=== PATIENT | female | born 1955 | race Caucasian/White ===

== ENCOUNTER 2023-02-28 06:30 | Inpatient (IN) | payer MEDICARE, OTHER, SELFPAY ==
[2023-02-17 09:51] VITALS: BMI 33.0
[2023-02-28] VITALS (16 sets, daily range): BP systolic 99–142; BP diastolic 50–83; PULSE 75–94; RESP 14–18; TEMP 35.3–36.4; O2SAT 92–99; BMI 33.0
[2023-02-28] MEDS: LACTATED RINGERS 1,000 ML 100 ML IV ×2 (07:10→09:15)
[2023-02-28 07:43] LABS: COVID19 -Nasal RAPID Negative (Negative)
--- NOTE | 2023-02-28 07:45 | PM.PREOP ---
Pre-operative Note COVID-19 COVID-19 status: Negative Result date/Date tested (Pos, Neg/Pending): 02/28/23 Criteria for continued procedure: Expected advancement of disease process, Possibility delay results in more complex future surgery or treatment, Increased loss of function, Continuing or worsening of significant or severe pain, Deterioration of the patient's condition or overall health and Delay expected to result in less-positive ultimate med/surg outcome Interval Note History & Physical reviewed/Exam performed by Physician: Yes Changes to H&P: No
[2023-02-28] MEDS: CEFAZOLIN 2 GM/100 ML PREMIX 100 ML IV ×3 (08:30→20:09)
--- NOTE | 2023-02-28 08:38 | SUR.OPER ---
Prone on spine table, head in foam head support, padded chest and pelvic supports, gel pad at knees, lower legs supported by pillows; nipples, genitalia and toes free of pressure, arms secured on foam padded arm boards at <90 degrees abduction. Tape over blanket at thigh secured to table.
[2023-02-28] MEDS: BUPIVACAINE 0.25% (PF) 30 ML, EPINEPHrine 0.15 MG INJ (09:20)
--- NOTE | 2023-02-28 13:00 | DI.RAD.S_ITS ---
PROCEDURE: XR LUMBAR SPINE 2-3V INDICATIONS: L2-3, L3-4, L4-5 TLIF ROBOT TECHNIQUE: 2 intraoperative fluoroscopic views of the lumbar spine were acquired. COMPARISON: None. FINDINGS: Intraoperative fluoroscopic images of lumbar spine shows posterior fusion at L2-3, L3-4 and L4-5 levels with intervertebral spacer placement. IMPRESSION: Fluoro guidance was provided intraoperatively for posterior fusion of lumbar spine at L2-3 through L4-5 levels. Dictated by: Steve Chaparro M.D. on 02/28/2023 at 16:25 Approved by: Steve Chaparro M.D. on 02/28/2023 at 16:26
[2023-02-28] MEDS: BUPIVACAINE LIPOSOME 266 MG/20 ML VIAL INJ (13:27)
--- NOTE | 2023-02-28 13:45 | P.OP_ITS ---
Operative Date/Time/Diagnoses Date of procedure: 02/28/23 Time of procedure: 07:40 Pre-op diagnosis: 1. L2-3, L3-4, L4-5 spinal stenosis with neurogenic claudication. 2. Lumbar spondylolisthesis Post-op diagnosis: same Procedure & Clinicians Procedure: 1. L2-3, L3-4, L4-5 Postero-lateral and posterior interbody fusion 2. L2-3, L3-4, L4-5 interbody cage placement. 3. L2-3, L3-4, L4-5 decompressive laminectomy with bilateral facetecomies 4. L2-3, L3-4, L4-5 Posterior segmental instrumentation 5. Lanse of bone marrow from iliac crest 6. Utilization of microsurgical technique and operating microscope 7. Utilization of robotic assisted navigation Same procedure as scheduled: Yes Indications: Patient has been having chronic back pain and worsening lumbar radiculopathy. Patient failed multiple conservative management with worsening pain weakness and numbness in her lower extremity. Patient has been having difficulty performing activity of daily living. After discussing risks benefits of treatment options, patient elected proceed with surgery. Surgeon: Estefani Vazquez Alterations Supervisor: Lukas Valentine Click Yes if Unassisted: No Anesthesia Type: General Operative Notes Closure Type: primary Specimen(s): none sent Prosthetic devices, grafts, tissues, transplants, or devices: Globus CREO MIS screws, Rise cages Applied: catheter Estimated Blood Loss (mL): 100 Blood products transfused: none Procedure in detail: Patient was seen in the preoperative area. Risks and benefits of the surgery was discussed with the patient. Informed consent was obtained from the patient and placed in the chart. Surgical site was marked. Patient was taken to the operative room. General anesthesia was administered. Prophylactic antibiotic was given to the patient less than 30 min before the incision was made. Patient was placed into a prone position on the Jesus table. Patient's back was then prepped and draped in the sterile fashion. Time-out was performed at this time. After patient was prepped and draped, patient's PSIS was palpated and marked bilaterally. Small 1 cm incision was made over the PSIS for placement of the reference probes. Two trocar was placed into the PSIS 1 on each side. The reference probe was attached to the trocar of the reference apparatus. At this time the C-arm imaging was used to confirm AP and lateral of L2, L3, L4, L5 vertebrae and merged the C-arm imaging using the AetherPal robotic navigation system with the CT of the lumbar spine. After successful merging was completed and confirmed, skin marker was used to radha out the skin incision using the AetherPal robotic arm. Bilateral incision was made at this time. Pre templated trajectory was used and guided using the AetherPal robotic navigation system for bilateral L2 L3, L4, L5 pedicle screw placement. This was done by using the robotic arm to guide the high-speed bur to make a cortical entry point. Next a drill was placed also using the robotic arm and guided using the navigation system drilling partially through bilateral L2, L3, L4, L5 pedicles. Next L2, L3, L4, L5 pedicle screws it was pre templated and measured was placed onto the power dump truck driver off highway and inserted into the pedicles bilaterally. After all 6 screws were placed C-arm imaging was taken of both AP and lateral to confirm the placement. Excellent placement of the screws were confirmed and a matched precisely with the pre planned screw placement using the navigation system. MARs retractor was inserted using [employer] guidence. Globus MARS retractors was placed inside the incision and docked onto the L2, L3, L4 lamina. Using microsurgical technique and operating microscope, a L2, L3, L4 laminectomy and L2-3, L3-4, L4-5 facetectomy was performed using a Kerrison rongeur. Patient was found have severe lateral recess and neural foramen stenosis which was fully decompressed after the laminectomy facetectomy. More than 75% of the facets were removed during the process of decompression rendering L2-3, L3-4, L4-5 level grossly unstable and required a fusion procedure at the same time. The disc space at L2-3, L3-4, L4-5 was identified, and a total diskectomy was performed at L2-3, L3-4, L4-5 level. The endplates were decorticated using a rasp and shaver. The total diskectomy and decortication was performed at L2-3, L3-4, L4-5 level in order to to accomplish a L2-3, L3-4, L4-5 fusion. The local bone from the laminectomy and facetectomy was saved for local bone grafting. After the total diskectomy and decortication was completed, Trifecta bone graft material was combined with local bone that was harvested earlier. At this time, a separate skin is incision was made over the iliac crest. A Jamshidi needle was inserted into the iliac crest through a separate skin incision. 5 cc of bone marrow aspiration was obtained through the separate skin incision using a Jamshidi needle from the iliac crest. The bone marrow aspiration was combined with local bone and the Trifecta bone grafting material. The bone grafting material was placed into the L2-3, L3-4, L4-5 interbody space along with expandable cages. One cage each was inserted into the L2-3 L3-4 L4-5 interbody space along with bone graft material. The cage was expanded to its maximum height using the torque limiting screwdriver. The disc preparation as well as the cage insertion were also performed under navigation guidance. After the cage was placed, AP and lateral C-arm imaging was taken to confirm placement of the cage and excellent position was confirmed. Globus MARS retractor was inserted and docked onto the L2-3, L3-4 L4-5 process mold technician olateral gutter on the right side. Using the power drill, posterior-lateral decortication was performed at L2-3, L3-4 L4-5 level until bleeding cortical bone was identified. The remaining bone grafting material was placed into the L2-3, L3-4 L4-5 posterior lateral gutter he order to accomplish posterolateral fusion at the L2-3, L3-4, L4-5 level. At this time the tulips were attached to the L2, L3, L4, L5 pedicle screw shanks. After measuring the length of the rods, they were inserted into the tulips of the pedicle screws and locked in place using locking caps and torque limiting screwdriver bilaterally. Total 6 caps and 2 titanium rods was used in order to complete the posterior instrumentation construct. After all the hardware was placed, and confirmed with AP and lateral C-arm imag ing, the wound was then irrigated with sterile normal saline and packed with Ray-Kirsten gauze for 3 min to accomplish hemostasis. After the gauze was removed the deep fascia was closed with #1 Vicryl suture. The subcutaneous layer was closed with 2-0 Vicryl. The skin was closed with skin tenzin. Patient tolerated the procedure well. There were no complications. Neuro monitoring system was used to monitor patient's neurologic status throughout entire procedure. There was no disturbance of the neural monitoring signals throughout the case. Complications: none Post-operative Condition: stable Disposition: PACU Plan for aftercare: Admit to inpatient hospital
[2023-02-28] MEDS: HYDROMORPHONE 2 MG INJ IV ×2 (14:36→14:46)
[2023-02-28] MEDS: LACTATED RINGERS 1,000 ML 125 ML IV ×2 (15:57→21:44)
[2023-02-28] MEDS: OXYCODONE IR 10 MG TABLET PO ×3 (17:27→22:53)
[2023-02-28] MEDS: DOCUSATE 100 MG CAPSULE PO (20:09)
[2023-02-28] MEDS: SENNOSIDES 8.6 MG TABLET 17.2 MG PO (20:09)
[2023-02-28] MEDS: MAGNESIUM OXIDE 400 MG TABLET PO (20:09)
[2023-02-28] MEDS: MELATONIN 3 MG TABLET 9 MG PO (20:10)
[2023-02-28] MEDS: GABAPENTIN 600 MG TABLET 1200 MG PO (20:10)
[2023-02-28] MEDS: ONDANSETRON 4 MG/2 ML INJ IV (20:16)
[2023-02-28] MEDS: hydrOXYzine pamoate 25 MG CAPSULE PO (22:53)
[2023-03-01] VITALS (7 sets, daily range): BP systolic 97–131; BP diastolic 55–82; PULSE 93–105; RESP 16–18; TEMP 36.4–37.5; O2SAT 93–100
[2023-03-01] MEDS: ACETAMINOPHEN 325 MG TABLET 650 MG PO ×3 (02:45→20:01)
[2023-03-01] MEDS: OXYCODONE IR 10 MG TABLET PO ×3 (02:46→20:00)
[2023-03-01] MEDS: CEFAZOLIN 2 GM/100 ML PREMIX 100 ML IV (04:07)
[2023-03-01] MEDS: ONDANSETRON 4 MG/2 ML INJ IV ×2 (05:01→13:42)
[2023-03-01 05:09] LABS: Hematocrit 30.5 % (36-46); Hemoglobin 10.6 g/dL (12.0-16.0)
[2023-03-01] MEDS: HYDROMORPHONE 0.5 MG INJ IV (05:44)
[2023-03-01] MEDS: LACTATED RINGERS 1,000 ML 125 ML IV ×3 (05:45→22:17)
--- NOTE | 2023-03-01 07:59 | PM.PNPO.1 ---
Subjective Subjective Date Patient Seen: 03/01/23 Time Patient Seen: 07:59 Interval history: Patient is complaining of moderate to severe low back pain. She is also had 2 bouts of vomiting this morning. Her numbness and tingling in her right leg has resolved. She baseline uses gabapentin 1200 mg b.i.d.. She is not worked with physical therapy yet or occupational therapy and still has her catheter in place. Exam Vital Signs (past 8 hours): - 03/01/23 00:00 03/01/23 04:00 Temperature 97.6 F 98.5 F Pulse Rate 97 H 97 H Respiratory Rate 17 16 Blood Pressure 131/82 108/60 Pulse Oximetry 98 97 Oxygen Flow Rate 2 2 Oxygen Delivery Method Nasal Cannula Oxygen Flow Rate 2 Narrative Exam Narrative: Pleasant 67-year-old female, resting comfortably in bed, no acute distress. Lumbar dressings are clean, dry, intact. No surrounding erythema, induration, or carrillo pus. Bilateral lower extremity: Motor functions are grossly intact, sensation is grossly intact to light touch, calves are soft and nontender palpation. Objective Labs 03/01/23 04:20 Labs: Laboratory Results - last 24 hr 03/01/23 04:20 Hgb 10.6 L Hct 30.5 L PFSH Medical History Anesthesia complication Anxiety Breast cancer, right (2014) History of COVID-19 (2021) Sciatica Sleep apnea Spinal stenosis Surgical History History of lumpectomy of right breast (2014) Hx of tubal ligation Hx of vein stripping S/P left unicompartmental knee replacement S/P right unicompartmental knee replacement Social History household members: spouse Smoking Status: Former smoker alcohol intake: current Assessment & Plan Post-op Postoperative Procedures: Procedures Operation Date: 02/28/23 07:45 Actual Procedure Side Surgeon p L2-3, L3-4, L4-5 TLIF w. posterior instrumentation-Robot Estefani Vazquez MD Postoperative day: 1 Postoperative status: marginal pain control Postoperative status narrative: -marginal pain control but stable status post L2-3, L3-4, L4-5 TLIF with posterior instrumentation -postoperative nausea and vomiting Postoperative plan narrative: -mobilize with PT/OT. Weightbearing as tolerated with front wheel walker or cane. No bending, lifting, twisting x6 weeks -continue multimodal pain management, encourage p.o. pain medications -DC urinary catheter today if she is mobilizing well -DC home once cleared by PT/OT and pain is manageable; likely in 1-2 days Quality VTE Deep Vein Thrombosis/Pulmonary Embolism Present on Admission: No
[2023-03-01] MEDS: GABAPENTIN 600 MG TABLET 1200 MG PO ×2 (08:51→20:00)
[2023-03-01] MEDS: DOCUSATE 100 MG CAPSULE PO ×2 (08:51→20:00)
[2023-03-01] MEDS: SODIUM CHLORIDE 0.9% FLUSH 10 ML IV ×2 (08:53→20:12)
--- NOTE | 2023-03-01 11:10 | OT.IP.EVAL ---
Current Diagnoses Spondylolisthesis, lumbar region (02/28/23) Surgery Performed Operation Date: 02/28/23 07:45 Actual Procedures p L2-3, L3-4, L4-5 TLIF w. posterior instrumentation-Robot - Estefani Vazquez MD Past Medical History (Last Reviewed 03/01/23 @ 08:00 by Arely Hansen PA-C) Anesthesia complication Anxiety Breast cancer, right (2014) History of COVID-19 (2021) Sciatica Sleep apnea Spinal stenosis Surgical History (Last Reviewed 03/01/23 @ 08:00 by Arely Hansen PA-C) History of lumpectomy of right breast (2014) Hx of tubal ligation Hx of vein stripping S/P left unicompartmental knee replacement S/P right unicompartmental knee replacement Occupational Therapy Inpatient Evaluation/Re-Eval M1 PT/OT-IP Prior Functional Status Start: 03/01/23 08:03 Freq: NEEDED Status: Active Protocol: Document 03/01/23 11:03 SAK (Rec: 03/01/23 11:19 SAK [id number]) Medical Review Prior Functional Status Medical History Reviewed Yes Diet/Fluid Consistency Regular Communication no limitations Mobility and Gait painful but no device Activities of Daily Living and IADL's modified independent Prior Functional Level (Other details) modified indep Social History Household Members spouse Living Arrangements House Number of Floors (Floors) One Floor Number of Stairs To Enter/Railing? 3 stairs with railing Home Environment Tub/Shower Home Equipment Front Wheel Walker Employment Status Retired M1 PT/OT-IP Prior Functional Status Start: 03/01/23 13:40 Freq: NEEDED Status: Active Protocol: Document 03/01/23 10:20 [facility] (Rec: 03/01/23 14:14 [facility] [id number]) Medical Review Prior Functional Status Medical History Reviewed Yes Diet/Fluid Consistency Regular Communication no limitations Mobility and Gait painful but no device Activities of Daily Living and IADL's modified independent Prior Functional Level (Other details) modified indep Social History Household Members spouse Living Arrangements House Number of Floors (Floors) One Floor Number of Stairs To Enter/Railing? 3 stairs with railing Home Environment High Toilet,Walk in Shower Home Equipment Front Wheel Walker,Shower Seat with Backrest,Ditch Tender Employment Status Retired M2 OT-IP Current Condition Start: 03/01/23 13:40 Freq: Status: Active Protocol: Document 03/01/23 10:20 [facility] (Rec: 03/01/23 14:14 [facility] [id number]) Occupational Therapy Current Condition Current Condition Evaluation Date 03/01/23 Treatment Diagnosis S/p L2-3, L3-4, L4-5 TLIF Diagnosis Onset Date 02/28/23 Post Operative Precautions Lumbar Precautions Log Roll,No Twisting,Limit Bending,Lifting Restriction of 10 lbs,Gait Belt above Incisional Area M3 OT- IP Subjective and Pain Start: 03/01/23 13:40 Freq: Status: Active Protocol: Document 03/01/23 10:20 [facility] (Rec: 03/01/23 14:14 [facility] [id number]) OT- Subjective Occupational Therapy Visit Type Type Initial Evaluation Visit Start Time 10:20 Visit Stop Time 11:10 Total Visit Minutes 50 Occupational Therapy Visit Comments Patient Comments Pt agreed to get up to the sink for grooming needs. Patient/Caregiver Goals To go home. OT Pain Assessment Pain When Pain Assessed During Mobility Pain Present Pain Present Pain Reported Location Back Intensity 5 M4 OT- IP ADL's Start: 03/01/23 13:40 Freq: Status: Active Protocol: Document 03/01/23 10:20 [facility] (Rec: 03/01/23 14:14 [facility] [id number]) OT [id number] Comments OT Self-Feeding Comments not issues anticipated OT ADL-Grooming General Evaluation Grooming Ability Standby Assistance Areas Needing Assistance Retrieving/Set-up of Grooming Items Comments OT Grooming Comments Able to do while standing with FWW in front of the sink. OT ADL-Oral Care General Eval Oral Care Ability Standby Assistance Areas of Assistance Retrieving/Set-Up of Items Comments Oral Care Comments VC and education best to spit into a cup versus hinge at her hips in order to best follow her back precautions. OT ADL-Dressing General Eval Lower Body Dressing Ability Maximum Assistance Areas Needing Assistance Socks Comments OT Dressing Comments Pt states does not wear socks at home and that her will just assist her. Pt does has a plate sensitizer at home. OT ADL-Toileting General Evaluation Toileting Ability Total Assistance Comments OT Toileting Comments Cox in place. Pt able to practice to stand and reach back appropriately to be able to wipe- suggested use of wet wipes and pads if needed. OT ADL-Bathing Comments OT Bathing Comments not performed M5 OT- IP IADL's Start: 03/01/23 13:40 Freq: Status: Active Protocol: Document 03/01/23 10:20 [facility] (Rec: 03/01/23 14:14 [facility] [id number]) OT-Instrumental Activities of Daily Living Deficits IADL Deficits Identified Deficits Home Safety Awareness Awareness of Need for Assistance at Home Good Awareness Ability to Problem Solve Emergency Able to Problem Solve Situations Home Safety Comments Pt has a supportive to assist at home. M6 OT- IP Functional Cognition Start: 03/01/23 13:40 Freq: Status: Active Protocol: Document 03/01/23 10:20 [facility] (Rec: 03/01/23 14:14 [facility] [id number]) Cognitive Factors Limiting Selfcare Function Cognitive Ability Level of Alertness Alert Patient Orientation Name,Age,Birthday,Month,Date, Year,Day of Week,Place, Situation Attention Span Ability Capable of Focused Attention, Capable of Sustained Attention Ability to Follow Commands Able to Follow Multi-Step Commands Cognitive Comments Cognitive Assessment Comments Pt able to follow commands for back precautions after initial education. OT- Vision and Hearing OT- Hearing Assessment OT- Hearing Assessment WFL M7 OT- IP Mobility and Balance Start: 03/01/23 13:40 Freq: Status: Active Protocol: Document 03/01/23 10:20 [facility] (Rec: 03/01/23 14:14 [facility] [id number]) OT-Transfer Assessment Sit to and From Stand Sit to and from Stand Moderate Assistance Transfers Transfer Ability Contact Guard Assistance Technique Transfer Destination Chair Transfer Technique Stand Step Pivot Devices Transfer Assistive Devices Gait Belt,Front Wheeled Walker Comments Mobility Comments MODA to come to stand to FWW. Once on her feet CGA with FWW to get to the sink and back. Pt feeling tired as a little shaky and nauseous. BP sitting 103/55, 102/59 and after up at the sink 94/58 and then while seated and several minutes later 82/46, 80/46, and 79/46 when reclined and having to trendelenburg 97/58 nd 103/62- nursing notified of results and pt's status. Pt on RA 95%. OT- Balance Assessment Sitting Balance and Reactions Static Sitting Balance Ability Normal Dynamic Sitting Balance Ability Good Standing Balance and Reactions Static Standing Balance Ability Good Dynamic Standing Balance Ability Fair M8 OT- IP Objective Assessments Start: 03/01/23 13:40 Freq: Status: Active Protocol: Document 03/01/23 10:20 [facility] (Rec: 03/01/23 14:14 [facility] [id number]) OT-Muscle Tone Assessment Muscle Tone WNL Yes M9 OT- IP Assessment and Plan Start: 03/01/23 13:40 Freq: Status: Active Protocol: Document 03/01/23 10:20 [facility] (Rec: 03/01/23 14:14 [facility] [id number]) OT Summary Assessment and Plan Potential Rehabilitation Potential Good Analytic Complexity at Evaluation Low Summary OT Impairments Pain,Balance,Functional Mobility,Dressing,Toileting, Bathing,Toilet Transfers, Shower Transfers,Activity Tolerance Progress Towards Goals Slow Progress due to Pain,Slow Progress due to Medical Issues,Slow Progress due to Activity Tolerance Assessment Summary Pt low complexity and main barrier is having low BP after getting up. Able to go over back precautions and equipment needs for ADLs. Pt has a supportive to assist her when medically stable. Goals Grooming Goal Independent Dressing Goal Minimal Assistance Toileting Goal Independent Bathing Goal Minimal Assistance Toilet Transfer Goal Independent Shower Transfer Goal Standby Assistance Patient/Caregiver Education Goal Demonstrate Post-Op Precautions,Caregiver Independent Assisting Patient Days to Meet Goals 2 Frequency of Treatment Frequency Of Treatment Once a Day Treatment Plan OT Treatment Plan ADL Training,Functional Mobility,Patient/Family Education,Discharge Planning Other Treatment Recommendations and Next caregiver training/ shower if Treatment Focus pt willing Discharge Recommendations OT Discharge Recommendations Home with Assistance Transportation Needs at Discharge Private Vehicle
--- NOTE | 2023-03-01 11:20 | PT.IIE ---
Current Diagnoses Spondylolisthesis, lumbar region (02/28/23) Surgery Performed Operation Date: 02/28/23 07:45 Actual Procedures p L2-3, L3-4, L4-5 TLIF w. posterior instrumentation-Robot - Estefani Vazquez MD Surgical History (Last Reviewed 03/01/23 @ 08:00 by Arely Hansen PA-C) History of lumpectomy of right breast (2014) Hx of tubal ligation Hx of vein stripping S/P left unicompartmental knee replacement S/P right unicompartmental knee replacement Medical History (Last Reviewed 03/01/23 @ 08:00 by Arely Hansen PA-C) Anesthesia complication Anxiety Breast cancer, right (2014) History of COVID-19 (2021) Sciatica Sleep apnea Spinal stenosis Physical Therapy Inpatient Evaluation/Re-Eval M1 PT/OT-IP Prior Functional Status Start: 03/01/23 08:03 Freq: NEEDED Status: Active Protocol: Document 03/01/23 11:03 [facility] (Rec: 03/01/23 11:19 [facility] [id number]) Medical Review Prior Functional Status Medical History Reviewed Yes Diet/Fluid Consistency Regular Communication no limitations Mobility and Gait painful but no device Activities of Daily Living and IADL's modified independent Prior Functional Level (Other details) modified indep Social History Household Members spouse Living Arrangements House Number of Floors (Floors) One Floor Number of Stairs To Enter/Railing? 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 [id number]) Physical Therapy Current Condition Current Condition Evaluation Date 03/01/23 Treatment Diagnosis s/p lumbar fusion Onset Date 02/28/23 M3 PT-IP Subjective Start: 03/01/23 08:03 Freq: NEEDED Status: Active Protocol: Document 03/01/23 11:03 SAK (Rec: 03/01/23 11:19 [facility] [id number]) Subjective Physical Therapy Visit Type Type Initial Evaluation Visit Start Time 09:50 Visit Stop Time 10:15 Total Visit Minutes 25 Number of [employer]CHO[employer] NURSING DIRECTOR Visits 0 Physical Therapy Visit Comments Patient Comments Patient reports nauseous last night and this am early, better now Patient Goals discharge home with assistance of Therapy Pain Assessment Pain When Pain Assessed At Rest Pain Present Pain Present Pain Reported Location Back Intensity 5 Scale Used Numeric (0 - 10) Description Aching,Burning,Tender, Tightness Pain Behaviors Facial Grimacing,Wincing Pain Management Techniques Apply Cold M4 PT-IP Mobility and Gait Start: 03/01/23 08:03 Freq: NEEDED Status: Active Protocol: Document 03/01/23 11:03 SAK (Rec: 03/01/23 11:19 SAK [id number]) PT-Bed Mobility Assessment Rolling Type of Rolling Log Rolling,Roll to Right Level of Assist Minimal Assistance Supine to Sit Supine to Sit Minimal Assistance Scooting Scooting to Edge of Bed Minimal Assistance PT-Transfer Assessment Sit to and From Stand Sit to and from Stand Contact Guard Assistance Equipment Transfer Assistive Device Gait Belt,Front Wheeled Walker Transfers Transfer Destination Chair Transfer Technique walked Transfer Ability Level of Assist Contact Guard Assistance Gait Assessment Gait Gait Assistance Required: Contact Guard Assist Distance (Feet) 15 Assistive Devices Assistive Device Gait Belt,Front Wheeled Walker Gait Deviations General Gait Pattern Antalgic,Decreased Stride Length,Decreased Feet Clearance Factors Limiting Gait Function Factors Limiting Gait Function Decreased Strength,Pain Comments Gait Comments Slow, shuffling gait, no LOB. Cues to keep eyes open, breath PT-Balance Assessment Sitting Balance and Reactions Static Sitting Balance Ability Good Dynamic Sitting Balance Ability Good Standing Balance and Reactions Static Standing Balance Ability Fair Dynamic Standing Balance Ability Fair M5 PT-IP Objective Assessments Start: 03/01/23 08:03 Freq: NEEDED Status: Active Protocol: Document 03/01/23 11:03 PRIYA (Rec: 03/01/23 11:19 SAK [id number]) Orientation Orientation/Cognition Level of Alertness Alert Orientation Name,Place,Situation Language Function Ability No Deficits Noted Safety Awareness Understands Safety Issues Memory Description No Deficits Noted Gross Range of Motion Upper Extremity ROM Assessment Within Functional Limits Lower Extremity ROM Assessment Within Functional Limits Strength Upper Extremity Strength Assessment Within Functional Limits Lower Extremity Strength Assessment Within Functional Limits Coordination Assessment Gross Coordination Gross Coordination WNL Sensation Assessment Sensation Gross Sensation WNL M6 PT-IP Treatment Start: 03/01/23 08:03 Freq: NEEDED Status: Active Protocol: Document 03/01/23 11:03 PRIYA (Rec: 03/01/23 11:19 SAK [id number]) Physical Therapy Treatment Education Education Provided Precautions M7 PT-IP Assessment and Plan Start: 03/01/23 08:03 Freq: NEEDED Status: Active Protocol: Document 03/01/23 11:03 PRIYA (Rec: 03/01/23 11:19 PRIYA [id number]) PT Summary Assessment and Plan Potential Rehabilitation Potential Good Status of Condition at Evaluation Evolving Summary Impairments Pain,Bed Mobility,Transfers, Gait,Activity Tolerance Assessment Summary PT evaluation s/p lumbar surgery with fusion performed 02/18/23. Patient lives in [place] with and plans to return home at discharge. Patient needed min assist with bed mobility, CGA with tranfers and gait with cues for hand placement and safety, keeping eyes open, and breathing instead of holding breath. Anticipate she will be able to discharge home with assist of . Goals Bed Mobility Goal Independent Transfer Goal Independent Gait Goal Independent Gait Distance 100 Days to Meet Goals 4 Frequency of Treatment Frequency Of Treatment Twice a Day Treatment Plan Physical Therapy Treatment Plan Bed Mobility Training,Transfer Training,Gait Training, Therapeutic Exercise,Discharge Planning,Hot or Cold Pack Precautions Lumbar Precautions Log Roll Weight Bearing Status Weight Bearing Status Full Weight Bearing Recommendations To Nursing Amount of Assist Needed 1 Person Assist Discharge Recommendations PT Discharge Recommendations Home with Assistance, Outpatient PT Equipment Needed for Home Before FWW Discharge
[2023-03-01] MEDS: hydrOXYzine pamoate 25 MG CAPSULE PO (12:58)
--- NOTE | 2023-03-01 14:23 | CM.DANOTE ---
Discharge Planning/Care Management CM Discharge Assessment Start: 03/01/23 14:08 Freq: Status: Active Protocol: Document 03/01/23 14:08 KAM (Rec: 03/01/23 14:23 KAM [id number]) Discharge Planning Assessment Assigned Special Services Agent BRYN Aiken DPOA/Assigned Designee Name Santo Romano, spouse Contact Information [phone] Advance Directives? Yes Advance Directives on File No History Provided By Patient,Significant Other, Medical Record Prior Living Arrangements House Household Members spouse Type of transporation used prior to Drives own vehicle admit Independent with ADL's Yes Is patient alert and oriented? Yes Barriers to Discharge No Comment Patient is a 67 yo female, resident of [place], POD1 from [facility] by Dr Taylor Fenton [facility]/[place] Patient has planned for discharge home w/spouse to assist as needed and therapy has cleared patient for this plan. Discharge home is anticipated, close outpatient follow up JW Discharge Plan Home Transportation Arrangement spouse Referrals Initiated None needed
--- NOTE | 2023-03-01 15:25 | PT.IPTN ---
Current Diagnoses Spondylolisthesis, lumbar region (02/28/23) Surgery Performed Operation Date: 02/28/23 07:45 Actual Procedures p L2-3, L3-4, L4-5 TLIF w. posterior instrumentation-Robot - Estefani Vazquez MD Physical Therapy Treatment Note M2 PT-IP Current Condition Start: 03/01/23 08:03 Freq: NEEDED Status: Active Protocol: Document 03/01/23 11:03 SAK (Rec: 03/01/23 11:19 SAK [id number]) Physical Therapy Current Condition Current Condition Evaluation Date 03/01/23 Treatment Diagnosis s/p lumbar fusion Onset Date 02/28/23 M3 PT-IP Subjective Start: 03/01/23 08:03 Freq: NEEDED Status: Active Protocol: Document 03/01/23 16:22 TS (Rec: 03/01/23 16:31 TS [id number]) Subjective Physical Therapy Visit Type Type Treatment Note Visit Start Time 15:25 Visit Stop Time 15:45 Total Visit Minutes 20 Physical Therapy Visit Comments Patient Comments Patient found resting in bed, agreeable to PT. Patient Goals discharge home with assistance of Therapy Pain Assessment Pain When Pain Assessed At Rest Pain Present Pain Present Pain Reported M4 PT-IP Mobility and Gait Start: 03/01/23 08:03 Freq: NEEDED Status: Active Protocol: Document 03/01/23 16:22 TS (Rec: 03/01/23 16:31 TS [id number]) PT-Bed Mobility Assessment Rolling Type of Rolling Log Rolling,Roll to Right Level of Assist Standby Assistance Supine to Sit Supine to Sit Standby Assistance Sit to Supine Sit to Supine Standby Assistance Scooting Scooting to Edge of Bed Standby Assistance Scooting Up and Down in Bed Standby Assistance PT-Transfer Assessment Sit to and From Stand Sit to and from Stand Standby Assistance Equipment Transfer Assistive Device Gait Belt,Front Wheeled Walker Comments Mobility Comments Log Roll SBA, demonstrated good carryover from previous session. Supine to sit SBA, provided cues for pushing through elbow and LUE. Sit to stand x1 SBA, cues for upright posture and spinal precautions. Pt ambulated ~300 with emerging step thru gait SBA, no reports of dizziness, buckling or LOB. Sit to supine SBA, cues for maintaining spinal precautions and sequencing of logroll. Pt was left in bed with call light nearby, in room. Gait Assessment Gait Gait Assistance Required: Standby Assistance Distance (Feet) 300 Assistive Devices Assistive Device Gait Belt,Front Wheeled Walker Gait Deviations General Gait Pattern Antalgic,Decreased Stride Length,Decreased Feet Clearance Factors Limiting Gait Function Factors Limiting Gait Function Decreased Strength,Pain Comments Gait Comments See mobility comments. Stair Climbing Assessment Comments Stair Climbing Comments Will assess stairs in morning. Pt has two to enter house. PT-Balance Assessment Sitting Balance and Reactions Static Sitting Balance Ability Good Dynamic Sitting Balance Ability Good Standing Balance and Reactions Static Standing Balance Ability Fair Dynamic Standing Balance Ability Fair M5 PT-IP Objective Assessments Start: 03/01/23 08:03 Freq: NEEDED Status: Active Protocol: Document 03/01/23 11:03 SAK (Rec: 03/01/23 11:19 SAK [id number]) Orientation Orientation/Cognition Level of Alertness Alert Orientation Name,Place,Situation Language Function Ability No Deficits Noted Safety Awareness Understands Safety Issues Memory Description No Deficits Noted Gross Range of Motion Upper Extremity ROM Assessment Within Functional Limits Lower Extremity ROM Assessment Within Functional Limits Strength Upper Extremity Strength Assessment Within Functional Limits Lower Extremity Strength Assessment Within Functional Limits Coordination Assessment Gross Coordination Gross Coordination WNL Sensation Assessment Sensation Gross Sensation WNL M6 PT-IP Treatment Start: 03/01/23 08:03 Freq: NEEDED Status: Active Protocol: Document 03/01/23 16:22 TS (Rec: 03/01/23 16:31 TS [id number]) Physical Therapy Treatment Education Education Provided Precautions Other Treatments Other Treatment Performed Pt recalled 3/3 spinal precautions. M7 PT-IP Assessment and Plan Start: 03/01/23 08:03 Freq: NEEDED Status: Active Protocol: Document 03/01/23 16:22 TS (Rec: 03/01/23 16:31 TS [id number]) PT Summary Assessment and Plan Potential Rehabilitation Potential Good Status of Condition at Evaluation Evolving Summary Impairments Pain,Bed Mobility,Transfers, Gait,Activity Tolerance Assessment Summary Pt progressed logroll to SBA, deonstrated good carryover of sequencing. She increased her ambulation to ~300' in hallway SBA, no reports of dizziness, buckling or LOB. Pt recalled spinal precautions 3/3 and good safety awareness throughout session. Pt has 2 stairs to enter home, will trial in morning. PT is recommending home with assist from spouse. Goals Bed Mobility Goal Independent Transfer Goal Independent Gait Goal Independent Gait Distance 100 Days to Meet Goals 4 Frequency of Treatment Frequency Of Treatment Twice a Day Treatment Plan Physical Therapy Treatment Plan Bed Mobility Training,Transfer Training,Gait Training, Therapeutic Exercise,Discharge Planning,Hot or Cold Pack Precautions Lumbar Precautions Log Roll Weight Bearing Status Weight Bearing Status Full Weight Bearing Recommendations To Nursing Amount of Assist Needed 1 Person Assist Discharge Recommendations PT Discharge Recommendations Home with Assistance, Outpatient PT Equipment Needed for Home Before FWW Discharge
--- NOTE | 2023-03-01 15:38 | PC.NURSE ---
0800: drowsy, wakens to verbal stimuli. b/p 90/60's w/ HOB elevated, became shakey, nauseated and pale. 1100: tolerated OOB to chair. became pale, tremulous, cold to the touch on her arms and face, nauseated. b/p trending down, lowest was 79/46. placed into trendelenberg, slow to recover. 1300: assisted back to bed - it took about 30 min to get from trendelenberg to sitting up in chair w/ feet on the floor. patient symptomatic, same symptoms as above. glucose 128. encouraged patient to use IS and work thru the symptoms. she was able to push herself up out of w/c and amb 10 feet around bed w/ FWW and assisted to bed via log roll. Santo present for above transfer. PRN oxycodone, vistaril, tylenol given w/ good effect. she had a good nap. 1530: walked w/ PT, did so much better than earlier. pain & bp improved. anticipates d/c tomorrow. 1800: updated Arely Hansen on above events, no new orders received. noticed code status is not updated in computer, passed that message along to Arely. report to JEANMARIE Moser.
[2023-03-01] MEDS: MELATONIN 3 MG TABLET 9 MG PO (19:59)
[2023-03-01] MEDS: SENNOSIDES 8.6 MG TABLET 17.2 MG PO (20:00)
[2023-03-01] MEDS: MAGNESIUM OXIDE 400 MG TABLET PO (20:01)
[2023-03-02] VITALS (9 sets, daily range): BP systolic 101–130; BP diastolic 48–88; PULSE 81–115; RESP 16–21; TEMP 36.6–38; O2SAT 94–100
[2023-03-02] MEDS: OXYCODONE IR 10 MG TABLET PO ×5 (00:09→18:46)
[2023-03-02] MEDS: ACETAMINOPHEN 325 MG TABLET 650 MG PO ×3 (04:21→21:11)
--- NOTE | 2023-03-02 08:29 | P.PN_ITS ---
Subjective Subjective Date Patient Seen: 03/02/23 Time Patient Seen: 08:00 Interval history: Patient is awake sitting up in bed this morning. She states her pain is well controlled with medication and her back doesn't hurt at rest. She notes that she worked with physical therapy yesterday and it went well. She plans to work with them again today and practice stairs because she has 2 stairs to get into her home. She complains of fever, chills, and headache overnight. Exam Vital Signs (past 8 hours): - 03/02/23 04:21 03/02/23 04:00 03/02/23 08:14 Temperature 100.4 F H 100.4 F H 98.1 F Pulse Rate 115 H 93 H Respiratory Rate 21 19 Blood Pressure 111/56 L 130/88 Pulse Oximetry 94 95 Oxygen Flow Rate 4 0 Oxygen Delivery Method Nasal Cannula Oxygen Flow Rate 0 Narrative Exam Narrative: Pleasant 67-year-old female. Awake, alert, and oriented. Intraoperative lumbar spine dressing clean, dry, and intact. Strength and sensation intact to bilateral lower extremities. Bilateral calves soft, compressible, nontender with no palpable cords or masses. Pulse rate 91. Blood pressure within acceptable range. Objective Labs 03/01/23 04:20 PFSH Medical History Anesthesia complication Anxiety Breast cancer, right (2014) History of COVID-19 (2021) Sciatica Sleep apnea Spinal stenosis Surgical History History of lumpectomy of right breast (2014) Hx of tubal ligation Hx of vein stripping S/P left unicompartmental knee replacement S/P right unicompartmental knee replacement Social History household members: spouse Smoking Status: Former smoker alcohol intake: current Assessment & Plan Post-op Postoperative Procedures: Procedures Operation Date: 02/28/23 07:45 Actual Procedure Side Surgeon p L2-3, L3-4, L4-5 TLIF w. posterior instrumentation-Robot Estefani Vazquez MD Postoperative day: 2 Postoperative status: doing well Postoperative status narrative: Patient is progressing as expected after three- level TLIF Postoperative plan: routine post-op care Postoperative plan narrative: Plan to assess vitals throughout the day. Work with physical therapy. Continue multimodal pain management. We will consider discharge as appropriate. Quality VTE Deep Vein Thrombosis/Pulmonary Embolism Present on Admission: No
[2023-03-02] MEDS: MAGNESIUM HYDROXIDE 30 ML UDC PO (08:43)
[2023-03-02] MEDS: DOCUSATE 100 MG CAPSULE PO ×2 (08:43→21:11)
[2023-03-02] MEDS: GABAPENTIN 600 MG TABLET 1200 MG PO ×2 (08:43→21:11)
[2023-03-02] MEDS: polyethylene glycoL 3350 17 GM POWD.PACK PO (08:43)
[2023-03-02] MEDS: SODIUM CHLORIDE 0.9% FLUSH 10 ML IV ×2 (08:47→21:11)
--- NOTE | 2023-03-02 11:13 | PT.IPTN ---
Current Diagnoses Sleep apnea, unspecified (02/28/23) Spondylolisthesis, lumbar region (02/28/23) Surgery Performed Operation Date: 02/28/23 07:45 Actual Procedures p L2-3, L3-4, L4-5 TLIF w. posterior instrumentation-Robot - Estefani Vazquez MD Physical Therapy Treatment Note M2 PT-IP Current Condition Start: 03/01/23 08:03 Freq: NEEDED Status: Active Protocol: Document 03/01/23 11:03 SAK (Rec: 03/01/23 11:19 SAK [id number]) Physical Therapy Current Condition Current Condition Evaluation Date 03/01/23 Treatment Diagnosis s/p lumbar fusion Onset Date 02/28/23 M3 PT-IP Subjective Start: 03/01/23 08:03 Freq: NEEDED Status: Active Protocol: Document 03/02/23 11:59 TS (Rec: 03/02/23 12:11 TS [id number]) Subjective Physical Therapy Visit Type Type Treatment Note Visit Start Time 11:13 Visit Stop Time 11:35 Total Visit Minutes 22 Notes Vitals:BP 103/71 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 Therapy Pain Assessment Pain When Pain Assessed At Rest Pain Present Pain Present Pain Reported M4 PT-IP Mobility and Gait Start: 03/01/23 08:03 Freq: NEEDED Status: Active Protocol: Document 03/02/23 11:59 TS (Rec: 03/02/23 12:11 TS [id number]) PT-Bed Mobility Assessment Sit to Supine Sit to Supine Minimal Assistance Scooting Scooting to Edge of Bed Standby Assistance Scooting Up and Down in Bed Standby Assistance PT-Transfer Assessment Sit to and From Stand Sit to and from Stand Contact Guard Assistance Equipment Transfer Assistive Device Gait Belt,Front Wheeled Walker Comments Mobility Comments Sit to stand from bed x1 CGA, required cues for weight forward and UEs on FWW. Pt ambulated in hallway step to gait with slow pace ~75' SBA, no signs of buckling or LOB. Sit to supine Isi for LEs inot bed, provided cues for logroll. PT was left in bed with spouse in room, call light nearby, RN notified. Gait Assessment Gait Gait Assistance Required: Standby Assistance Distance (Feet) 75 Assistive Devices Assistive Device Gait Belt,Front Wheeled Walker Gait Deviations General Gait Pattern Antalgic,Decreased Stride Length,Decreased Feet Clearance Factors Limiting Gait Function Factors Limiting Gait Function Decreased Strength,Pain Comments Gait Comments See mobility comments. Stair Climbing Assessment Comments Stair Climbing Comments Pt unable at this time. PT-Balance Assessment Sitting Balance and Reactions Static Sitting Balance Ability Good Dynamic Sitting Balance Ability Fair Standing Balance and Reactions Static Standing Balance Ability Good Dynamic Standing Balance Ability Fair M5 PT-IP Objective Assessments Start: 03/01/23 08:03 Freq: NEEDED Status: Active Protocol: Document 03/01/23 11:03 SAK (Rec: 03/01/23 11:19 SAK [id number]) Orientation Orientation/Cognition Level of Alertness Alert Orientation Name,Place,Situation Language Function Ability No Deficits Noted Safety Awareness Understands Safety Issues Memory Description No Deficits Noted Gross Range of Motion Upper Extremity ROM Assessment Within Functional Limits Lower Extremity ROM Assessment Within Functional Limits Strength Upper Extremity Strength Assessment Within Functional Limits Lower Extremity Strength Assessment Within Functional Limits Coordination Assessment Gross Coordination Gross Coordination WNL Sensation Assessment Sensation Gross Sensation WNL M6 PT-IP Treatment Start: 03/01/23 08:03 Freq: NEEDED Status: Active Protocol: Document 03/02/23 11:59 TS (Rec: 03/02/23 12:11 TS [id number]) Physical Therapy Treatment Education Education Provided Precautions Other Treatments Other Treatment Performed Pt recalled 3/3 spinal precautions. M7 PT-IP Assessment and Plan Start: 03/01/23 08:03 Freq: NEEDED Status: Active Protocol: Document 03/02/23 11:59 TS (Rec: 03/02/23 12:11 TS [id number]) PT Summary Assessment and Plan Potential Rehabilitation Potential Good Status of Condition at Evaluation Evolving Summary Impairments Pain,Bed Mobility,Transfers, Gait,Activity Tolerance Assessment Summary Pt required increased assist with sit to stand to CGA and sit to supine this session with Isi for LEs into bed. Pt is more lethargic this morning and reports increasing fatigue with therapy. Pt reported fever in the night and could be contributing to decreased mobility this session. PT continues to recommend return home with spouse for assist. Pt will need to complete stairs x2 before d/c. Goals Bed Mobility Goal Independent Transfer Goal Independent Gait Goal Independent Gait Distance 100 Days to Meet Goals 4 Frequency of Treatment Frequency Of Treatment Twice a Day Treatment Plan Physical Therapy Treatment Plan Bed Mobility Training,Transfer Training,Gait Training, Therapeutic Exercise,Discharge Planning,Hot or Cold Pack Precautions Lumbar Precautions Log Roll Weight Bearing Status Weight Bearing Status Full Weight Bearing Recommendations To Nursing Amount of Assist Needed 2 Person Assist Discharge Recommendations PT Discharge Recommendations Home with Assistance, Outpatient PT Equipment Needed for Home Before FWW Discharge
--- NOTE | 2023-03-02 12:35 | OT.IP.TRT ---
Current Diagnoses Sleep apnea, unspecified (02/28/23) Spondylolisthesis, lumbar region (02/28/23) Surgery Performed Operation Date: 02/28/23 07:45 Actual Procedures p L2-3, L3-4, L4-5 TLIF w. posterior instrumentation-Robot - Estefani Vazquez MD Occupational Therapy Treatment Note M2 OT-IP Current Condition Start: 03/01/23 13:40 Freq: Status: Active Protocol: Document 03/01/23 10:20 [facility] (Rec: 03/01/23 14:14 [facility] [id number]) Occupational Therapy Current Condition Current Condition Evaluation Date 03/01/23 Treatment Diagnosis S/p L2-3, L3-4, L4-5 TLIF Diagnosis Onset Date 02/28/23 Post Operative Precautions Lumbar Precautions Log Roll,No Twisting,Limit Bending,Lifting Restriction of 10 lbs,Gait Belt above Incisional Area M3 OT- IP Subjective and Pain Start: 03/01/23 13:40 Freq: Status: Active Protocol: Document 03/02/23 12:35 [facility] (Rec: 03/02/23 13:29 [facility] [id number]) OT- Subjective Occupational Therapy Visit Type Type Treatment Note Visit Start Time 12:35 Visit Stop Time 12:44 Total Visit Minutes 9 Occupational Therapy Visit Comments Patient Comments Pt not feeling well and complaining of a headache. Pt' s present and agreed best to allow pt to rest and see pt tomorrow for caregiver training for showering and dressing needs. Patient/Caregiver Goals To go home. OT Pain Assessment Location Head Intensity 4 Scale Used Numeric (0 - 10) M5 OT- IP IADL's Start: 03/01/23 13:40 Freq: Status: Active Protocol: Document 03/01/23 10:20 [facility] (Rec: 03/01/23 14:14 [facility] [id number]) OT-Instrumental Activities of Daily Living Deficits IADL Deficits Identified Deficits Home Safety Awareness Awareness of Need for Assistance at Home Good Awareness Ability to Problem Solve Emergency Able to Problem Solve Situations Home Safety Comments Pt has a supportive to assist at home. M6 OT- IP Functional Cognition Start: 03/01/23 13:40 Freq: Status: Active Protocol: Document 03/01/23 10:20 [facility] (Rec: 03/01/23 14:14 [facility] [id number]) Cognitive Factors Limiting Selfcare Function Cognitive Ability Level of Alertness Alert Patient Orientation Name,Age,Birthday,Month,Date, Year,Day of Week,Place, Situation Attention Span Ability Capable of Focused Attention, Capable of Sustained Attention Ability to Follow Commands Able to Follow Multi-Step Commands Cognitive Comments Cognitive Assessment Comments Pt able to follow commands for back precautions after initial education. OT- Vision and Hearing OT- Hearing Assessment OT- Hearing Assessment WFL M7 OT- IP Mobility and Balance Start: 03/01/23 13:40 Freq: Status: Active Protocol: Document 03/02/23 12:35 [facility] (Rec: 03/02/23 13:29 [facility] [id number]) OT-Transfer Assessment Comments Mobility Comments Pt at RA 86% and HR at 126, able to put O2 on the pt and increased to 93% and HR 110. Able to notify pt's nurse of O2 levels and headache. M8 OT- IP Objective Assessments Start: 03/01/23 13:40 Freq: Status: Active Protocol: Document 03/01/23 10:20 [facility] (Rec: 03/01/23 14:14 [facility] [id number]) OT-Muscle Tone Assessment Muscle Tone WNL Yes M9 OT- IP Assessment and Plan Start: 03/01/23 13:40 Freq: Status: Active Protocol: Document 03/02/23 12:35 [facility] (Rec: 03/02/23 13:29 [facility] [id number]) OT Summary Assessment and Plan Potential Rehabilitation Potential Good Analytic Complexity at Evaluation Low Summary OT Impairments Pain,Balance,Functional Mobility,Dressing,Toileting, Bathing,Toilet Transfers, Shower Transfers,Activity Tolerance Progress Towards Goals Slow Progress due to Pain,Slow Progress due to Medical Issues,Slow Progress due to Activity Tolerance Assessment Summary Pt not feeling well today and now complaining of headache. Pt back to needing O2 as on RA was at 86%. Able to set up caregiver training with pt's for tomorrow for showering /dressing needs. Pt to go home when medically stable. Goals Grooming Goal Independent Dressing Goal Minimal Assistance Toileting Goal Independent Bathing Goal Minimal Assistance Toilet Transfer Goal Independent Shower Transfer Goal Standby Assistance Patient/Caregiver Education Goal Demonstrate Post-Op Precautions,Caregiver Independent Assisting Patient Days to Meet Goals 5 Frequency of Treatment Frequency Of Treatment Once a Day Treatment Plan OT Treatment Plan ADL Training,Functional Mobility,Patient/Family Education,Discharge Planning Other Treatment Recommendations and Next caregiver training/ shower if Treatment Focus pt willing Discharge Recommendations OT Discharge Recommendations Home with Assistance Transportation Needs at Discharge Private Vehicle
--- NOTE | 2023-03-02 15:30 | PT.IPTN ---
Current Diagnoses Sleep apnea, unspecified (02/28/23) Spondylolisthesis, lumbar region (02/28/23) Surgery Performed Operation Date: 02/28/23 07:45 Actual Procedures p L2-3, L3-4, L4-5 TLIF w. posterior instrumentation-Robot - Estefani Vazquez MD Physical Therapy Treatment Note M2 PT-IP Current Condition Start: 03/01/23 08:03 Freq: NEEDED Status: Active Protocol: Document 03/01/23 11:03 [facility] (Rec: 03/01/23 11:19 [facility] [id number]) Physical Therapy Current Condition Current Condition Evaluation Date 03/01/23 Treatment Diagnosis s/p lumbar fusion Onset Date 02/28/23 M3 PT-IP Subjective Start: 03/01/23 08:03 Freq: NEEDED Status: Active Protocol: Document 03/02/23 16:13 [facility] (Rec: 03/02/23 16:30 TS [id number]) Subjective Physical Therapy Visit Type Type Treatment Note Visit Start Time 15:30 Visit Stop Time 15:55 Total Visit Minutes 25 Number of CURRICULUM ASSISTANT PRINCIPAL Visits 2 Physical Therapy Visit Comments Patient Comments Pt found asleep in bed with spouse nearby, alert when awakened, agreeable to PT. Therapy Pain Assessment Pain When Pain Assessed At Rest Pain Present Pain Present Pain Reported M4 PT-IP Mobility and Gait Start: 03/01/23 08:03 Freq: NEEDED Status: Active Protocol: Document 03/02/23 16:13 TS (Rec: 03/02/23 16:30 TS [id number]) PT-Bed Mobility Assessment Rolling Type of Rolling Log Rolling,Roll to Right Level of Assist Standby Assistance Supine to Sit Supine to Sit Standby Assistance Sit to Supine Sit to Supine Minimal Assistance Scooting Scooting to Edge of Bed Minimal Assistance Scooting Up and Down in Bed Standby Assistance PT-Transfer Assessment Sit to and From Stand Sit to and from Stand Minimal Assistance Equipment Transfer Assistive Device Gait Belt,Front Wheeled Walker Comments Mobility Comments Pt found resting in bed, agreeable to PT session. Supine to sit SBA, slow pace, provided cues for UE support and LEs off EOB. Sit to stand x1 Isi, provided cues for weight forward and UE support on FWW. Pt ambulated ~300' SBA with step to gait, no reports of dizziness, buckling or LOB . Sit to supine Isi for LEs back into bed, pt demonstrates good carryover from previous session. Pt scooted to HOB SBA , provided cues for handrail asssit, and pushingthrough heels. Pt was left in bed with spouse in room, all needs met . Gait Assessment Gait Gait Assistance Required: Standby Assistance Distance (Feet) 300 Assistive Devices Assistive Device Gait Belt,Front Wheeled Walker Gait Deviations General Gait Pattern Antalgic,Decreased Stride Length,Decreased Feet Clearance Comments Gait Comments See mobility comments. Stair Climbing Assessment Comments Stair Climbing Comments Did not attempt this session. PT-Balance Assessment Sitting Balance and Reactions Static Sitting Balance Ability Good Dynamic Sitting Balance Ability Good Standing Balance and Reactions Static Standing Balance Ability Good Dynamic Standing Balance Ability Fair M5 PT-IP Objective Assessments Start: 03/01/23 08:03 Freq: NEEDED Status: Active Protocol: Document 03/01/23 11:03 [facility] (Rec: 03/01/23 11:19 [facility] [id number]) Orientation Orientation/Cognition Level of Alertness Alert Orientation Name,Place,Situation Language Function Ability No Deficits Noted Safety Awareness Understands Safety Issues Memory Description No Deficits Noted Gross Range of Motion Upper Extremity ROM Assessment Within Functional Limits Lower Extremity ROM Assessment Within Functional Limits Strength Upper Extremity Strength Assessment Within Functional Limits Lower Extremity Strength Assessment Within Functional Limits Coordination Assessment Gross Coordination Gross Coordination WNL Sensation Assessment Sensation Gross Sensation WNL M6 PT-IP Treatment Start: 03/01/23 08:03 Freq: NEEDED Status: Active Protocol: Document 03/02/23 16:13 TS (Rec: 03/02/23 16:30 TS [id number]) Physical Therapy Treatment Education Education Provided Precautions Other Treatments Other Treatment Performed Pt recalled 3/3 spinal precautions. M7 PT-IP Assessment and Plan Start: 03/01/23 08:03 Freq: NEEDED Status: Active Protocol: Document 03/02/23 16:13 TS (Rec: 03/02/23 16:30 TS [id number]) PT Summary Assessment and Plan Potential Rehabilitation Potential Good Status of Condition at Evaluation Evolving Summary Impairments Pain,Bed Mobility,Transfers, Gait,Activity Tolerance Assessment Summary Pt requiring increased assist with sit to stand x1 to Isi and scooting to EOB Iis with transfer pad. Pt continues to ambulate SBA, increasing her distance to ~300' this session and continues to recall 3/3 precautions. Pt is feeling better this afternoon, is more alert and less lethargic than previous session. PT continues to recommend pt return home with assistance from spouse. Pt will need to do stairs prior to d/c. Goals Bed Mobility Goal Independent Transfer Goal Independent Gait Goal Independent Gait Distance 100 Days to Meet Goals 4 Frequency of Treatment Frequency Of Treatment Twice a Day Treatment Plan Physical Therapy Treatment Plan Bed Mobility Training,Transfer Training,Gait Training, Therapeutic Exercise,Discharge Planning,Hot or Cold Pack Precautions Lumbar Precautions Log Roll Weight Bearing Status Weight Bearing Status Full Weight Bearing Recommendations To Nursing Amount of Assist Needed Standby Assistance,1 Person Assist Discharge Recommendations PT Discharge Recommendations Home with Assistance, Outpatient PT Equipment Needed for Home Before FWW Discharge
[2023-03-02] MEDS: SENNOSIDES 8.6 MG TABLET 17.2 MG PO (21:11)
[2023-03-02] MEDS: MAGNESIUM OXIDE 400 MG TABLET PO (21:11)
[2023-03-02] MEDS: MELATONIN 3 MG TABLET 9 MG PO (21:11)
[2023-03-02] MEDS: hydrOXYzine pamoate 25 MG CAPSULE PO (21:12)
[2023-03-03] MEDS: OXYCODONE IR 10 MG TABLET PO ×4 (01:43→15:16)
[2023-03-03 04:00] VITALS: BP 115/75; PULSE 84; RESP 16; TEMP 36.3; O2SAT 98
[2023-03-03] MEDS: ACETAMINOPHEN 325 MG TABLET 650 MG PO ×2 (06:41→12:16)
[2023-03-03 08:00] VITALS: BP 117/61; PULSE 89; RESP 14; TEMP 36.4; O2SAT 95
[2023-03-03] MEDS: polyethylene glycoL 3350 17 GM POWD.PACK PO (08:27)
[2023-03-03] MEDS: GABAPENTIN 600 MG TABLET 1200 MG PO (08:28)
[2023-03-03] MEDS: SODIUM CHLORIDE 0.9% FLUSH 10 ML IV (08:28)
[2023-03-03] MEDS: MAGNESIUM HYDROXIDE 30 ML UDC PO (08:28)
[2023-03-03] MEDS: DOCUSATE 100 MG CAPSULE PO (08:28)
[2023-03-03 08:30] VITALS: O2SAT 95
[2023-03-03 08:45] VITALS: O2SAT 96
--- NOTE | 2023-03-03 09:44 | PT.IPTN ---
Current Diagnoses Sleep apnea, unspecified (02/28/23) Spondylolisthesis, lumbar region (02/28/23) Surgery Performed Operation Date: 02/28/23 07:45 Actual Procedures p L2-3, L3-4, L4-5 TLIF w. posterior instrumentation-Robot - Estefani Vazquez MD Physical Therapy Treatment Note M2 PT-IP Current Condition Start: 03/01/23 08:03 Freq: NEEDED Status: Active Protocol: Document 03/01/23 11:03 [facility] (Rec: 03/01/23 11:19 [facility] [id number]) Physical Therapy Current Condition Current Condition Evaluation Date 03/01/23 Treatment Diagnosis s/p lumbar fusion Onset Date 02/28/23 M3 PT-IP Subjective Start: 03/01/23 08:03 Freq: NEEDED Status: Active Protocol: Document 03/03/23 09:20 [facility] (Rec: 03/03/23 11:37 [facility] [id number]) Subjective Physical Therapy Visit Type Type Treatment Note Visit Start Time 09:20 Visit Stop Time 09:44 Total Visit Minutes 24 Number of BEEF SPLITTER Visits 3 Physical Therapy Visit Comments Patient Comments Pt c/o weakness in legs and headache Therapy Pain Assessment Pain When Pain Assessed During Mobility Pain Present Pain Present Pain Reported Location Back Intensity 5 Scale Used Numeric (0 - 10) M4 PT-IP Mobility and Gait Start: 03/01/23 08:03 Freq: NEEDED Status: Active Protocol: Document 03/03/23 09:20 [facility] (Rec: 03/03/23 11:37 [facility] [id number]) PT-Bed Mobility Assessment Rolling Type of Rolling Log Rolling,Roll to Right Level of Assist Standby Assistance Supine to Sit Supine to Sit Standby Assistance Sit to Supine Sit to Supine Minimal Assistance Scooting Scooting to Edge of Bed Contact Guard Assistance PT-Transfer Assessment Sit to and From Stand Sit to and from Stand Minimal Assistance Equipment Transfer Assistive Device Gait Belt,Front Wheeled Walker Transfers Transfer Destination Bed Transfer Technique lateral steps Transfer Ability Level of Assist Minimal Assistance,1 Person Assistance,Use of Upper Extremities Comments Mobility Comments Pt in bed upon arrival and able to recall 3/3 spinal precautions. SBA for logroll and sup<>sit. CGA for scooting EOB. Pt requires increased time to complete all tasks and c/o 5/10 pain w/ mobility. Min A and cues for hand placement for sit<>stand w/ FWW. Pt unable to ambulate due to feeling her legs were too weak. She took 3 small lateral steps towards HOB before sitting. Min A for sit<>sup and CGA for logroll back into bed. Pt left in bed w/ all needs in reach. Gait Assessment Gait Gait Assistance Required: Contact Guard Assist,1 Person Assist Distance (Feet) 2 Assistive Devices Assistive Device Gait Belt,Front Wheeled Walker Factors Limiting Gait Function Factors Limiting Gait Function Decreased Strength Comments Gait Comments See mobility comments. Stair Climbing Assessment Comments Stair Climbing Comments Pt unable to progress ambulation or stair training this AM. PT-Balance Assessment Sitting Balance and Reactions Static Sitting Balance Ability Good Dynamic Sitting Balance Ability Good Standing Balance and Reactions Static Standing Balance Ability Good Dynamic Standing Balance Ability Fair M5 PT-IP Objective Assessments Start: 03/01/23 08:03 Freq: NEEDED Status: Active Protocol: Document 03/01/23 11:03 [facility] (Rec: 03/01/23 11:19 [facility]AK [id number]) Orientation Orientation/Cognition Level of Alertness Alert Orientation Name,Place,Situation Language Function Ability No Deficits Noted Safety Awareness Understands Safety Issues Memory Description No Deficits Noted Gross Range of Motion Upper Extremity ROM Assessment Within Functional Limits Lower Extremity ROM Assessment Within Functional Limits Strength Upper Extremity Strength Assessment Within Functional Limits Lower Extremity Strength Assessment Within Functional Limits Coordination Assessment Gross Coordination Gross Coordination WNL Sensation Assessment Sensation Gross Sensation WNL M6 PT-IP Treatment Start: 03/01/23 08:03 Freq: NEEDED Status: Active Protocol: Document 03/03/23 09:20 [facility] (Rec: 03/03/23 11:37 [facility] [id number]) Physical Therapy Treatment Education Education Provided Precautions Other Treatments Other Treatment Performed Pt recalled 3/3 spinal precautions. M7 PT-IP Assessment and Plan Start: 03/01/23 08:03 Freq: NEEDED Status: Active Protocol: Document 03/03/23 09:20 [facility] (Rec: 03/03/23 11:37 [facility] [id number]) PT Summary Assessment and Plan Potential Rehabilitation Potential Good Summary Impairments Pain,Bed Mobility,Transfers, Gait,Activity Tolerance Progress Towards Goals Slow Progress due to Activity Tolerance Assessment Summary Unable to progress ambulation distance or complete stair training due to pt c/o BLE weakness. Christina requiring SBA to CGA for bed mobility and Min A for sit<>stand w/ FWW. Will continue to assess progress. Goals Bed Mobility Goal Independent Transfer Goal Independent Gait Goal Independent Gait Distance 100 Days to Meet Goals 4 Frequency of Treatment Frequency Of Treatment Twice a Day Treatment Plan Physical Therapy Treatment Plan Bed Mobility Training,Transfer Training,Gait Training, Therapeutic Exercise,Discharge Planning,Hot or Cold Pack Precautions Lumbar Precautions Log Roll Weight Bearing Status Weight Bearing Status Full Weight Bearing Recommendations To Nursing Amount of Assist Needed Standby Assistance,1 Person Assist Discharge Recommendations PT Discharge Recommendations Home with Assistance, Outpatient PT Equipment Needed for Home Before FWW Discharge
--- NOTE | 2023-03-03 10:57 | P.DS_ITS ---
History of Present Illness History of Present Illness Date Patient Seen: 03/03/23 Time Patient Seen: 07:30 Chief complaint: s/p TLIF Discharge Providers Provider Date of admission: 02/28/23 06:30 Discharge Date: 03/03/23 Primary care physician: Elodia Conte DO Consults: 02/28/23 15:15 Consult to Occupational Therapy Evaluate & Treat Comment: Physician Instructions: Evaluate and treat Consult to Physical Therapy Evaluate & Treat Comment: Physician Instructions: Evaluate and Treat Discharge provider: Charlene Gonzalez PA-C Summary Hospital Course Discharge Diagnosis: S/p TLIF Hospital Course: Operative Date/Time/Diagnoses Date of procedure: 02/28/23 Time of procedure: 07:40 Pre-op diagnosis: 1. L2-3, L3-4, L4-5 spinal stenosis with neurogenic claudication. 2. Lumbar spondylolisthesis Post-op diagnosis: same Procedure & Clinicians Procedure: 1. L2-3, L3-4, L4-5 Postero-lateral and posterior interbody fusion 2. L2-3, L3-4, L4-5 interbody cage placement. 3. L2-3, L3-4, L4-5 decompressive laminectomy with bilateral facetecomies 4. L2-3, L3-4, L4-5 Posterior segmental instrumentation 5. [place] of bone marrow from iliac crest 6. Utilization of microsurgical technique and operating microscope 7. Utilization of robotic assisted navigation Same procedure as scheduled: Yes Indications: Patient has been having chronic back pain and worsening lumbar radiculopathy. Patient failed multiple conservative management with worsening pain weakness and numbness in her lower extremity.? Patient has been having difficulty performing activity of daily living.? After discussing risks benefits of treatment options, patient elected proceed with surgery. Surgeon: Estefani Vazquez Industrial [employer] Servicer: Lukas Valentine Click Yes if Unassisted: No Anesthesia Type: General Operative Notes Closure Type: primary Specimen(s): none sent Prosthetic devices, grafts, tissues, transplants, or devices: Globus CREO MIS screws, Rise cages Applied: catheter Estimated Blood Loss (mL): 100 Blood products transfused: none Status at Discharge Cognitive/behavioral status at discharge: oriented Functional status at discharge: independent ambulation Overall status at discharge: patient is progressing back to baseline Exam Vital Signs (past 8 hours): - 03/03/23 04:00 03/03/23 08:00 03/03/23 08:30 Temperature 97.4 F L 97.5 F L Pulse Rate 84 89 Respiratory Rate 16 14 Blood Pressure 115/75 117/61 Pulse Oximetry 98 95 95 Oxygen Delivery Method Room Air Oxygen Flow Rate 2 0 03/03/23 08:45 Temperature Pulse Rate Respiratory Rate Blood Pressure Pulse Oximetry 96 Oxygen Delivery Method Room Air Oxygen Flow Rate Fraction of Inspired Oxygen 28 SaO2/FiO2 Ratio 339 Oxygen Delivery Method Room Air Oxygen Flow Rate 0 Narrative Exam Narrative: Pleasant 67 year old female. Awake, alert, and oriented. Intraoperative dressing intact with one dime sized spot of serous fluid distally on bilateral dressings. No surrounding erythema or warmth. Strength and sensation intact to bilateral lower extremities. Bilateral calves soft, compressible, non-tender with no palpable cords or masses. Vital signs stable. Objective Labs 03/01/23 04:20 [facility] Medical History Anesthesia complication Anxiety Breast cancer, right (2014) History of COVID-19 (2021) Sciatica Sleep apnea Spinal stenosis Surgical History History of lumpectomy of right breast (2014) Hx of tubal ligation Hx of vein stripping S/P left unicompartmental knee replacement S/P right unicompartmental knee replacement Social History household members: spouse Smoking Status: Former smoker alcohol intake: current Discharge Assessment & Plan Assessment and Plan Assessment: Patient is progressing as expected after TLIF. Postoperative course was complicated briefly by uncontrolled pain which is now resolved. Pain medications are now treating her pain effectively. She looks forward to working with physical therapy today. Plan of Treatment: Continue multimodal pain control. Up with physical therapy this morning to walk and try stairs. If successful and cleared by physical therapy patient may discharge home. Follow up woth orthopedics 2 weeks after surgery. Discharge Plan Discharge Plan Patient Disposition: Home Provider Discharge Comment: Discharge when safe and cleared by physical therapy Discharge orders & Medications Prescriptions: New oxycodone 5 mg tablet 5 mg PO Q4-6H PRN (Reason: pain) Qty: 42 0RF hydroxyzine pamoate 25 mg Capsule 25 mg PO Q4HR PRN (Reason: Nausea And Vomiting) Qty: 40 0RF acetaminophen 325 mg Tablet 650 mg PO Q6H PRN (Reason: Fever/Mild Pain (1-3)) Qty: 120 0RF Continued celecoxib 200 mg Capsule 200 mg PO DAILY gabapentin 600 mg Tablet 1,200 mg PO BID diphenhydramine-acetaminophen [Acetaminophen-Sleep Aid PM] 25-500 mg Tablet 2 tab PO BEDTIME magnesium oxide 400 mg magnesium Capsule 400 mg PO BEDTIME melatonin 10 mg Tablet 10 mg PO BEDTIME Follow up/Referrals: Elodia Conte DO [Primary Care Provider] - Estefani Vazquez MD [Physician] - As previously scheduled Diet/Activity/Treatments Diet: Diet as Tolerated Activity: Up and walking as tolerated. No deep bending, twisting, or lifting ove r 10 pounds. Skin/Wound/Dressing Care Report to your healthcare provider any signs of infection, such as:: chills, fever, night sweats, unusual drainage and unusual redness Dressing: Keep dressing clean, dry, and intact until 2 week follow up. Visit Report/Discharge Packet Instructions: DI for Transforaminal Lumbar Interbody Fusion Stand Alone Forms: Patient Portal/API, Stroke Signs & Symptoms, Surgery Discharge Discharge Data Primary Care Provider: Elodia Conte Quality VTE Deep Vein Thrombosis/Pulmonary Embolism Present on Admission: No
--- NOTE | 2023-03-03 11:36 | OT.IP.TRT ---
Current Diagnoses Sleep apnea, unspecified (02/28/23) Spondylolisthesis, lumbar region (02/28/23) Surgery Performed Operation Date: 02/28/23 07:45 Actual Procedures p L2-3, L3-4, L4-5 TLIF w. posterior instrumentation-Robot - Estefani Vazquez MD Occupational Therapy Treatment Note M2 OT-IP Current Condition Start: 03/01/23 13:40 Freq: Status: Active Protocol: Document 03/01/23 10:20 [facility] (Rec: 03/01/23 14:14 [facility] [id number]) Occupational Therapy Current Condition Current Condition Evaluation Date 03/01/23 Treatment Diagnosis S/p L2-3, L3-4, L4-5 TLIF Diagnosis Onset Date 02/28/23 Post Operative Precautions Lumbar Precautions Log Roll,No Twisting,Limit Bending,Lifting Restriction of 10 lbs,Gait Belt above Incisional Area M3 OT- IP Subjective and Pain Start: 03/01/23 13:40 Freq: Status: Active Protocol: Document 03/03/23 11:36 [facility] (Rec: 03/03/23 12:53 [facility] [id number]) OT- Subjective Occupational Therapy Visit Type Type Treatment Note Visit Start Time 11:36 Visit Stop Time 11:49 Total Visit Minutes 13 Occupational Therapy Visit Comments Patient Comments Pt not up for showering today as just sponged off earlier. Patient/Caregiver Goals To go home. OT Pain Assessment Pain When Pain Assessed At Rest Pain Present Pain Present Denied Pain M4 OT- IP ADL's Start: 03/01/23 13:40 Freq: Status: Active Protocol: Document 03/03/23 11:36 [facility] (Rec: 03/03/23 12:53 [facility] [id number]) OT ADL-Oral Care Comments Oral Care Comments Able to reiterate techniques to follow her back precautions for needs. OT ADL-Bathing Comments OT Bathing Comments Educated pt's of checking the back dressing and to put plastic and tape to cover the bandage for showering needs- in addition that nursing will go over it again and possibly change out her dressing prior to going home. M5 OT- IP IADL's Start: 03/01/23 13:40 Freq: Status: Active Protocol: Document 03/01/23 10:20 [facility] (Rec: 03/01/23 14:14 [facility] [id number]) OT-Instrumental Activities of Daily Living Deficits IADL Deficits Identified Deficits Home Safety Awareness Awareness of Need for Assistance at Home Good Awareness Ability to Problem Solve Emergency Able to Problem Solve Situations Home Safety Comments Pt has a supportive to assist at home. M6 OT- IP Functional Cognition Start: 03/01/23 13:40 Freq: Status: Active Protocol: Document 03/01/23 10:20 [facility] (Rec: 03/01/23 14:14 [facility] [id number]) Cognitive Factors Limiting Selfcare Function Cognitive Ability Level of Alertness Alert Patient Orientation Name,Age,Birthday,Month,Date, Year,Day of Week,Place, Situation Attention Span Ability Capable of Focused Attention, Capable of Sustained Attention Ability to Follow Commands Able to Follow Multi-Step Commands Cognitive Comments Cognitive Assessment Comments Pt able to follow commands for back precautions after initial education. OT- Vision and Hearing OT- Hearing Assessment OT- Hearing Assessment WFL M9 OT- IP Assessment and Plan Start: 03/01/23 13:40 Freq: Status: Active Protocol: Document 03/03/23 11:36 [facility] (Rec: 03/03/23 12:53 [facility] [id number]) OT Summary Assessment and Plan Potential Rehabilitation Potential Good Analytic Complexity at Evaluation Low Summary OT Impairments Pain,Balance,Functional Mobility,Dressing,Toileting, Bathing,Toilet Transfers, Shower Transfers,Activity Tolerance Progress Towards Goals Slow Progress due to Activity Tolerance Assessment Summary Pt feeling a better today and able to drink an Ensure as okayed by nursing. Able to go over details of ADl needs wit pt' s and he has already been assisting pt to the bathroom. Pt to go home with medically stable. Goals Grooming Goal Independent Dressing Goal Minimal Assistance Toileting Goal Independent Bathing Goal Minimal Assistance Toilet Transfer Goal Independent Shower Transfer Goal Standby Assistance Days to Meet Goals 2 Frequency of Treatment Frequency Of Treatment Once a Day Treatment Plan OT Treatment Plan ADL Training,Functional Mobility,Patient/Family Education,Discharge Planning Discharge Recommendations OT Discharge Recommendations Home with Assistance Transportation Needs at Discharge Private Vehicle
[2023-03-03 12:00] VITALS: BP 115/73; PULSE 79; RESP 19; TEMP 36.5; O2SAT 94
[2023-03-03] MEDS: ONDANSETRON 4 MG/2 ML INJ IV (13:50)
--- NOTE | 2023-03-03 13:54 | PC.NURSE ---
Day shift: Provided pt nausea management while primary nurse occupied elsewhere. Scanned pt's bracelet, matched the pt EMAR but stated it was not the patient's bracelet. Ensured that the barcode was indeed the correct format for medication scanning but system still stated it was the correct pt but not the bracelet.
--- NOTE | 2023-03-03 14:25 | PT.IPTN ---
Current Diagnoses Sleep apnea, unspecified (02/28/23) Spondylolisthesis, lumbar region (02/28/23) Surgery Performed Operation Date: 02/28/23 07:45 Actual Procedures p L2-3, L3-4, L4-5 TLIF w. posterior instrumentation-Robot - Estefani Vazquez MD Physical Therapy Treatment Note M2 PT-IP Current Condition Start: 03/01/23 08:03 Freq: NEEDED Status: Active Protocol: Document 03/01/23 11:03 [facility] (Rec: 03/01/23 11:19 [facility] [id number]) Physical Therapy Current Condition Current Condition Evaluation Date 03/01/23 Treatment Diagnosis s/p lumbar fusion Onset Date 02/28/23 M3 PT-IP Subjective Start: 03/01/23 08:03 Freq: NEEDED Status: Active Protocol: Document 03/03/23 13:50 [facility] (Rec: 03/03/23 15:37 [facility] [id number]) Subjective Physical Therapy Visit Type Type Treatment Note Visit Start Time 13:50 Visit Stop Time 14:25 Total Visit Minutes 35 Number of YEAST STACKER Visits 4 Physical Therapy Visit Comments Patient Comments Spouse present for crg trg M4 PT-IP Mobility and Gait Start: 03/01/23 08:03 Freq: NEEDED Status: Active Protocol: Document 03/03/23 13:50 [facility] (Rec: 03/03/23 15:37 [facility] [id number]) PT-Transfer Assessment Sit to and From Stand Sit to and from Stand Minimal Assistance Equipment Transfer Assistive Device Gait Belt,Front Wheeled Walker Transfers Transfer Destination Chair,Wheelchair Transfer Technique ambulated Transfer Ability Level of Assist Minimal Assistance,1 Person Assistance,Use of Upper Extremities Comments Mobility Comments Pt in chair w/ spouse in room stating he has been assisiting her w/ amb to bathroom. Pt requires Min A for sit<>Stand w/ FWW. Amb to w/c for transport to stairs. Pt ascended/descended 3 steps w/ R rail and CGA from and then took w/c back to room and ambulated remaining 30 ft back to chair. Left in chair w/ all needs in reach. Gait Assessment Gait Gait Assistance Required: Contact Guard Assist,1 Person Assist Distance (Feet) 30 Assistive Devices Assistive Device Gait Belt,Front Wheeled Walker Gait Deviations General Gait Pattern Antalgic,Decreased Stride Length,Decreased Feet Clearance Factors Limiting Gait Function Factors Limiting Gait Function Decreased Strength Comments Gait Comments See mobility comments. Stair Climbing Assessment Evaluation Level of Assist On Stairs Contact Guard Assistance,1 Person Assistance Devices Stair Climbing Assistive Devices Right Railing Technique/Endurance Stair Climbing Direction Ascend and Descend Stair Climbing Technique Step to Step Number of Steps Climbed 3 Stair Climbing Set # Repetitions (reps) 1 Comments Stair Climbing Comments Pt ascended/descended 3 steps w/ R rail and CGA w/ [employer]OE [employer]PERVISOR provided by spouse w/ step to pattern. No LOB. Pt and spouse state they feel safe to complete at home. PT-Balance Assessment Sitting Balance and Reactions Static Sitting Balance Ability Good Dynamic Sitting Balance Ability Good Standing Balance and Reactions Static Standing Balance Ability Good Dynamic Standing Balance Ability Fair Device Used FWW M5 PT-IP Objective Assessments Start: 03/01/23 08:03 Freq: NEEDED Status: Active Protocol: Document 03/01/23 11:03 [facility] (Rec: 03/01/23 11:19 [facility] [id number]) Orientation Orientation/Cognition Level of Alertness Alert Orientation Name,Place,Situation Language Function Ability No Deficits Noted Safety Awareness Understands Safety Issues Memory Description No Deficits Noted Gross Range of Motion Upper Extremity ROM Assessment Within Functional Limits Lower Extremity ROM Assessment Within Functional Limits Strength Upper Extremity Strength Assessment Within Functional Limits Lower Extremity Strength Assessment Within Functional Limits Coordination Assessment Gross Coordination Gross Coordination WNL Sensation Assessment Sensation Gross Sensation WNL M6 PT-IP Treatment Start: 03/01/23 08:03 Freq: NEEDED Status: Active Protocol: Document 03/03/23 13:50 [facility] (Rec: 03/03/23 15:37 [facility] [id number]) Physical Therapy Treatment Education Education Provided Precautions Other Treatments Other Treatment Performed Pt recalled 3/3 spinal precautions. M7 PT-IP Assessment and Plan Start: 03/01/23 08:03 Freq: NEEDED Status: Active Protocol: Document 03/03/23 13:50 [facility] (Rec: 03/03/23 15:37 [facility] [id number]) PT Summary Assessment and Plan Potential Rehabilitation Potential Good Summary Impairments Pain,Bed Mobility,Transfers, Gait,Activity Tolerance Progress Towards Goals Slow Progress due to Activity Tolerance Assessment Summary Pt able to complete stair trianing this PM< was able to provide all necessary assistance throughout training . Discussed at home safety and importance of mobility. Pt feels safe to return home w/ spouse. She will benefit from OPPT when appropriate. Goals Bed Mobility Goal Independent Transfer Goal Independent Gait Goal Independent Gait Distance 100 Days to Meet Goals 4 Frequency of Treatment Frequency Of Treatment Twice a Day Treatment Plan Physical Therapy Treatment Plan Bed Mobility Training,Transfer Training,Gait Training, Therapeutic Exercise,Discharge Planning,Hot or Cold Pack Precautions Lumbar Precautions Log Roll Weight Bearing Status Weight Bearing Status Full Weight Bearing Recommendations To Nursing Amount of Assist Needed Standby Assistance,1 Person Assist Discharge Recommendations PT Discharge Recommendations Home with Assistance, Outpatient PT Equipment Needed for Home Before FWW Discharge
[2023-03-03 15:00] VITALS: O2SAT 95
== END 2023-03-03 15:35 | disposition home or self-care (01) | DRG 455 ==
PROVIDERS: Admitting Provider Orthopaedic Surgery Orthopaedic Surgery of the Spine; PCP Family Medicine; Referring Provider Orthopaedic Surgery; Visit Provider Orthopaedic Surgery Orthopaedic Surgery of the Spine
PROC: 0SG10AJ Fusion of 2 or more Lumbar Vertebral Joints with Interbody Fusion Device, Posterior Approach, Anterior Column, Open Approach (ICD-10-PCS; principal; 2023-02-28 07:45)
DX: M43.16 Spondylolisthesis, lumbar region (principal); M48.062 Spinal stenosis, lumbar region with neurogenic claudication; G89.18 Other acute postprocedural pain; Z87.891 Personal history of nicotine dependence; Z20.822 Contact with and (suspected) exposure to COVID-19
CPT/HCPCS: 36415; 72100; 76000; 85014; 85018; 87635; 94660; 94760; 97116; 97161; 97165; 97530; 97535; C9803; C1713; C9290; J0171; J0330; J0690; J1100; J1170; J2250; J2405; J2704; J3010